=== PATIENT | male | born 1950 | race Caucasian/White ===

== ENCOUNTER → 2022-02-16 | Outpatient (REF) | payer MEDICARE | LOC: M SFHCDERM 13:40 | PROVIDERS: ATTEND Nurse Practitioner Family | DX: L98.499 Non-pressure chronic ulcer of skin of other sites with unspecified severity (principal); L85.9 Epidermal thickening, unspecified | CPT/HCPCS: 11102; 88305; G0463 ==

== ENCOUNTER → 2022-02-23 | Outpatient (REF) | payer MEDICARE | LOC: M LAB REF 13:34 | PROVIDERS: ATTEND Nurse Practitioner Family | DX: D49.2 Neoplasm of unspecified behavior of bone, soft tissue, and skin (principal) ==

== ENCOUNTER → 2022-03-10 | Outpatient (REF) | payer MEDICARE | LOC: M SFHCDERM 12:27 | PROVIDERS: ATTEND Nurse Practitioner Family | DX: Z51.89 Encounter for other specified aftercare (principal) ==

== ENCOUNTER → 2022-04-08 | Outpatient (REF) | payer MEDICARE | LOC: M SFHCDERM 14:11 | PROVIDERS: ATTEND Dermatology | DX: L73.8 Other specified follicular disorders (principal) ==